=== PATIENT | female | born 1990 | race Caucasian/White ===

== ENCOUNTER → 2019-03-13 | Outpatient (CLI) | payer OTHER ==
[~2019-03-13] MED LIST: METHOTREXATE 25 MG/ML IM SCH
[2019-03-13 10:54] VITALS: BP 130/82; TEMP 97.5; O2SAT 100
== END ==
LOC: TXRM 10:42
PROVIDERS: ATTEND Physician Assistant
DX: O01.9 Hydatidiform mole, unspecified (principal)
CPT/HCPCS: 96372; J9250